=== PATIENT | female | born 1965 | race Caucasian/White ===

== ENCOUNTER 2022-03-07 20:55 | Emergency (ER) | payer OTHER ==
[2022-03-07 21:27] VITALS: BP 172/104; PULSE 110; RESP 17; TEMP 98; BMI 25.8
[2022-03-07] MEDS ORDERED: ACETAMINOPHEN 500 MG TABLET (FP) ONE (22:09)
[2022-03-07] MEDS ORDERED: ACETAMINOPHEN 500 MG TABLET (FP) PO ONE (22:10)
== END 2022-03-07 23:50 | disposition home or self-care (01) ==
LOC: FER 20:55
DX: S42.201A Unspecified fracture of upper end of right humerus, initial encounter for closed fracture (principal); V80.010A Animal-rider injured by fall from or being thrown from horse in noncollision accident, initial encounter
CPT/HCPCS: 73030-TC-RT-FY; 99283-25